=== PATIENT | male | born 1995 | race Caucasian/White ===

== ENCOUNTER 2018-09-27 22:09 | Emergency (ER) | payer OTHER ==
[2018-09-27 22:24] VITALS: TEMP 99.2; BMI 36.5
[2018-09-27] MEDS ORDERED: LIDOCAINE HCL 1% SDV SUBCUT STA (22:41)
--- NOTE | 2018-09-27 23:27 | ED.PDOC ---
General ED Provider: Dr. SHINE LING Chief Complaint: Laceration Stated Complaint: patient is a 23 year old male who sustained an accidental laceration on the right distal anterior thigh with a new knief. Had some bleeding but was controlled with pressure. Time Seen by Physician: 22:30 Mode of Arrival: Walk-In Information Source: Patient Exam Limitations: No limitations Primary Care Provider: RAI STAPLETON Nursing and Triage Documentation Reviewed and Agree: Yes Does patient meet sepsis criteria?: No System Inflammatory Response Syndrome: Not Applicable Sepsis Protocol: For patient's 13 years and over: Temp is 96.8 and below OR 101 and greater Pulse >90 BPM Resp >20/minute Acutely Altered Mental Status Are patient's symptoms suggestive of a new infection, such as: -Pneumonia -Skin, Soft Tissue -Endocarditis -UTI -Bone, Joint Infection -Implantable Device -Acute Abdominal Infection -Wound Infection -Meningitis -Blood Stream Catheter Infection -Unknown Review of Systems - Review Of Systems Constitutional: Reports: No symptoms Musculoskeletal: Reports: Muscle pain (right thigh area of laceration ) Skin: Reports: Other (Skin laceration right Thigh ) All Other Systems: Reviewed and Negative Past Medical History - Past Medical History Previously Healthy: Yes Endocrine: Reports: None Cardiovascular: Reports: None Respiratory: Reports: None Hematological: Reports: None Gastrointestinal: Reports: None Genitourinary: Reports: None Neuro/Psych: Reports: Bipolar Disorder, Schizophrenia, Other (ADHD, TOURETTES) Musculoskeletal: Reports: None Cancer: Reports: None Other Pertinent Past Medical History: Obesity - Surgical History General Surgical History: Reports: None - Family History Family History: Reports: None - Social History Smoking Status: Current some day smoker Hx Substance Use: No Alcohol Screening: Occasionally - Immunizations Tetanus Shot up to Date: (UNKNOWN) Physical Exam - Physical Exam Appearance: Obese Pain Distress: Moderate Neck: Supple Respiratory: Airway patent, Breath sounds clear, Breath sounds equal, Respirations nonlabored Cardiovascular: RRR, Pulses normal, No rub, No murmur Skin: Warm, Dry Neurological: Alert, Oriented Psychiatric: Anxious Procedures - Laceration/Wound Repair Right Anterior Thigh Wound Description: Linear Wound Length (cm): 6 Wound Width: 1.5 Wound Depth: 2 Wound Explored: Clean Wound Irrigated: No Wound Prep: Saline, Hibiclens Anesthesia: Lidocaine Wound Margins: Flaps aligned Wound Repaired With: Sutures Suture Size and Type: 3.0 Prolene Number of Sutures: 11 (simple interrupted. ) Layer Closure?: No Sterile Dressing Applied?: Yes Splint Applied?: No Sling Applied?: No Progress: Tolerated fairly due to phobia of wounds and blood Re-Evaluation - Re-Evaluation Time of Re-Evaluation: 23:32 Status: Improved Vital Signs Stable: Yes (161/106) Critical Care Note - Critical Care Note Total Time (mins): 0 Course - Course Orders, Labs, Meds: Orders Category Date Time Status Lidocaine HCl/Pf [Lidocaine HCl 1% Sdv] MEDS 09/27/18 22:41 Discontinued 10 ml SUBCUT ONCE STA Medications Discontinued Medications Generic Name Dose Route Start Last Admin Trade Name Freq PRN Reason Stop Dose Admin Lidocaine HCl 10 ml 09/27/18 22:41 09/27/18 23:06 Lidocaine Hcl 1% Sdv SUBCUT 09/27/18 22:42 5 ml ONCE STA Administration Vital Signs: Temp Pulse Resp BP Pulse Ox 09/27/18 23:32 106 H 20 161/87 H 96 09/27/18 22:09 99.2 F 108 H 24 154/98 H 97 Departure - Departure Time of Disposition: 23:29 Disposition: HOME SELF-CARE Discharge Problem: Laceration - injury, Elevated blood pressure reading Instructions: Laceration (ED), Hypertension (ED) Condition: Stable Pt referred to PMD for follow-up: Yes IPMP verified?: No Additional Instructions: have your sutures removed in 7-10 days Report any signs of infection. Follow up with your PMD about elevated blood pressure Allergies/Adverse Reactions: Allergies No Known Drug Allergies Adverse Reaction (Verified 09/27/18 22:25) Home Medications: Ambulatory Orders 1 [No Reported Medications] 09/27/18 Disposition Discussed With: Patient, Family
[2018-09-27 23:32] VITALS: BP 161/87
== END 2018-09-27 23:40 | disposition home or self-care (01) ==
LOC: ED 22:09
DX: S71.111A Laceration without foreign body, right thigh, initial encounter (principal); W26.0XXA Contact with knife, initial encounter; I10 Essential (primary) hypertension; F17.210 Nicotine dependence, cigarettes, uncomplicated
CPT/HCPCS: 99283

== ENCOUNTER 2018-12-15 10:10 | Outpatient (CLI) | END 2018-12-15 10:11 | disposition home or self-care (01) | LOC: LAB 10:10 | PROVIDERS: ATTEND Family Medicine | DX: E78.5 Hyperlipidemia, unspecified (principal); R73.9 Hyperglycemia, unspecified; E66.9 Obesity, unspecified | CPT/HCPCS: 36415; 80053; 80061; 80306; 81001; 84439; 84443 ==

== ENCOUNTER 2018-12-26 14:06 | Observation (INO) ==
[2018-12-26 14:12] VITALS: BMI 41.7
--- NOTE | 2018-12-26 14:57 | DI ---
EXAM: Two views of the chest. History: Cough. Comparison: Chest radiograph Findings: Heart size is within normal limits. No focal consolidation. No appreciable pleural fluid and no pneumothorax. No acute osseous abnormalities. Impression: No acute cardiopulmonary process.
--- NOTE | 2018-12-26 16:12 | ED.PDOC ---
General ED Provider: Dr. EMBER GUDINO Chief Complaint: Chest Pain Stated Complaint: flu like symptoms chest pain, cough Time Seen by Physician: 14:14 Mode of Arrival: Walk-In Information Source: Patient Exam Limitations: No limitations Primary Care Provider: RAI STAPLETON Nursing and Triage Documentation Reviewed and Agree: Yes Does patient meet sepsis criteria?: No If yes, has appropriate treatment been initiated?: No System Inflammatory Response Syndrome: Not Applicable Sepsis Protocol: For patient's 13 years and over: Temp is 96.8 and below OR 101 and greater Pulse >90 BPM Resp >20/minute Acutely Altered Mental Status Are patient's symptoms suggestive of a new infection, such as: -Pneumonia -Skin, Soft Tissue -Endocarditis -UTI -Bone, Joint Infection -Implantable Device -Acute Abdominal Infection -Wound Infection -Meningitis -Blood Stream Catheter Infection -Unknown Respiratory Complaint Exam - Respiratory Complaint/Exam Symptoms Are: Still present Timing: Intermittent Initial Severity: Mild Current Severity: Mild Location: Chest Character: Reports: Non-productive cough, Dry cough Aggravating: Reports: URI Alleviating: Reports: None Associated Signs and Symptoms: Reports: URI, Nasal congestion. Denies: Rapid breathing, Dyspnea, Fever, Chills, Chest pain, Pleuritic chest pain, Wheezing, Hemoptysis, Dizziness, Calf pain, Calf swelling, Edema, Hoarseness, Sinus discomfort, Vomiting, Sore throat, Weight loss, Decreased oral intake, Increased thirst, Increased appetite, Increased urination History of Healthcare-Acquired Pneumonia: No Related Surgical History: Reports: None Pulmonary Embolism Risk Factors: None Cardiac Risk Factors: Reports: None Pseudomonas Risk Factors: Reports: None Tuberculosis Risk Factors: Reports: None Status Asthmaticus Risk Factors: Reports: None Home Oxygen Use: No Recent Stress Test: No Recent Echo/LV Function: No Current Antibiotic Use: No Current Asthma Medication Use: No Respiratory Distress: None Inadequate Respiratory Effort: No Dysphagia Present: No Stridor Present: No JVD Present: No Accessory Muscle Use: No Retractions: Not Present Sinus Tenderness: None Grunting Respirations: No Kussmaul Respirations: No Differential Diagnoses: Pneumonia, Bronchitis Review of Systems - Review Of Systems Constitutional: Reports: No symptoms Eyes: Reports: No symptoms Ears, Nose, Mouth, Throat: Reports: No symptoms Respiratory: Reports: No symptoms Cardiac: Reports: Chest pain GI: Reports: No symptoms : Reports: No symptoms Musculoskeletal: Reports: No symptoms Skin: Reports: No symptoms Neurological: Reports: No symptoms Endocrine: Reports: No symptoms Hematologic/Lymphatic: Reports: No symptoms All Other Systems: Reviewed and Negative Past Medical History - Past Medical History Previously Healthy: Yes Endocrine: Reports: None Cardiovascular: Reports: None Respiratory: Reports: None Hematological: Reports: None Gastrointestinal: Reports: None Genitourinary: Reports: None Neuro/Psych: Reports: Bipolar Disorder, Schizophrenia, Other (ADHD, TOURETTES) Musculoskeletal: Reports: None Cancer: Reports: None Other Pertinent Past Medical History: Obesity - Surgical History General Surgical History: Reports: None - Family History Family History: Reports: None - Social History Smoking Status: Current some day smoker Hx Substance Use: Yes Alcohol Screening: Occasionally - Immunizations Tetanus Shot up to Date: Yes Physical Exam - Physical Exam Appearance: Well-appearing, No pain distress, Well-nourished Eyes: WILFREDO, EOMI, Conjunctiva clear ENT: Ears normal, Nose normal, Oropharynx normal Respiratory: Airway patent, Breath sounds clear, Breath sounds equal, Respirations nonlabored Cardiovascular: RRR, Pulses normal, No rub, No murmur GI/: Soft, Nontender, No masses, Bowel sounds normal, No Organomegaly Musculoskeletal: Normal strength, ROM intact, No edema, No calf tenderness Skin: Warm, Dry, Normal color Neurological: Sensation intact, Motor intact, Reflexes intact, Cranial nerves intact, Alert, Oriented Psychiatric: Affect appropriate, Mood appropriate 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 Rhythm: Sinus Ectopy: None - EKG Interpretation Rate: Normal Rhythm: Sinus Ectopy: None [place]: NL Physician Notification - Case Discussed Physician Notified: [email or web address] Time of Notification: 16:16 Admit To: Observation Critical Care Note - Critical Care Note Total Time (mins): 0 Course - Course Hematology/Chemistry: 12/26/18 14:28 12/26/18 14:28 Orders, Labs, Meds: Lab Review 12/26/18 12/26/18 12/26/18 14:28 14:28 14:35 WBC 10.55 H RBC 5.17 Hgb 15.6 Hct 46.7 MCV 90.3 MCH 30.2 MCHC 33.4 RDW Coeff of Polo 12.5 Plt Count 240 Immature Gran % (Auto) 0.3 Neut % (Auto) 57.6 Lymph % (Auto) 34.6 Hand % (Auto) 5.9 Eos % (Auto) 1.2 Baso % (Auto) 0.4 Immature Gran # (Auto) 0.0 Neut # (Auto) 6.1 Lymph # (Auto) 3.7 H Hand # (Auto) 0.6 Eos # (Auto) 0.1 Baso # (Auto) 0.0 Sodium 140.7 Potassium 4.38 Chloride 100.8 Carbon Dioxide 29.0 Anion Gap 15.28 BUN 13.0 Creatinine 0.88 Estimated GFR (MDRD) 109.00 BUN/Creatinine Ratio 14.77 Glucose 96.3 Calcium 9.69 Total Bilirubin 0.48 AST 38.4 ALT 58.2 H Alkaline Phosphatase 72.3 Total Creatine Kinase 65.9 Troponin I < 0.012 Total Protein 7.85 Albumin 4.71 Globulin 3.14 Albumin/Globulin Ratio 1.50 Urine Opiates Screen Negative Ur Oxycodone Screen Negative Urine Methadone Screen Negative Ur Propoxyphene Screen Negative Ur Barbiturates Screen Negative U Tricyclic Antidepress Negative Ur Phencyclidine Scrn Negative Ur Amphetamine Screen Negative U Methamphetamines Scrn Negative U Benzodiazepines Scrn Negative Urine Cocaine Screen Negative U Cannabinoids Screen Positive Influ A Molecular Assay Influ B Molecular Assay 12/26/18 14:35 WBC RBC Hgb Hct MCV MCH MCHC RDW Coeff of Polo Plt Count Immature Gran % (Auto) Neut % (Auto) Lymph % (Auto) Hand % (Auto) Eos % (Auto) Baso % (Auto) Immature Gran # (Auto) Neut # (Auto) Lymph # (Auto) Hand # (Auto) Eos # (Auto) Baso # (Auto) Sodium Potassium Chloride Carbon Dioxide Anion Gap BUN Creatinine Estimated GFR (MDRD) BUN/Creatinine Ratio Glucose Calcium Total Bilirubin AST ALT Alkaline Phosphatase Total Creatine Kinase Troponin I Total Protein Albumin Globulin Albumin/Globulin Ratio Urine Opiates Screen Ur Oxycodone Screen Urine Methadone Screen Ur Propoxyphene Screen Ur Barbiturates Screen U Tricyclic Antidepress Ur Phencyclidine Scrn Ur Amphetamine Screen U Methamphetamines Scrn U Benzodiazepines Scrn Urine Cocaine Screen U Cannabinoids Screen Influ A Molecular Assay Negative by naat Influ B Molecular Assay Negative by naat Orders Category Date Time Status EKG-(ED ONLY) Stat CARDIO 12/26/18 14:20 Completed CBC W/ AUTO DIFF Stat LAB 12/26/18 14:28 Completed COMPREHENSIVE METABOLIC PANEL Stat LAB 12/26/18 14:28 Completed CREATINE KINASE Stat LAB 12/26/18 14:28 Completed FLU A/B MOLECULAR Stat LAB 12/26/18 14:35 Completed MOLECULAR GROUP A STREP Stat LAB 12/26/18 16:03 Received TROPONIN I Stat LAB 12/26/18 14:28 Completed URINE DRUG SCREEN (RAPID FOR ED) [DRUG SCREEN, URINE, LAB 12/26/18 14:35 Completed RAPID] Stat CHEST, 2 VIEWS PA & LAT Stat RADS 12/26/18 14:19 Completed Vital Signs: Temp Pulse Resp BP Pulse Ox 12/26/18 14:08 98.1 F 110 H 20 180/100 H 98 Departure - Departure Time of Disposition: 16:13 Disposition: PLACED OBSERVATION Discharge Problem: Chest pain Condition: Good Pt referred to PMD for follow-up: Yes IPMP verified?: No Allergies/Adverse Reactions: Allergies No Known Drug Allergies Adverse Reaction (Verified 09/27/18 22:25) Home Medications: Ambulatory Orders 1 [No Reported Medications] 09/27/18
[2018-12-26] MEDS ORDERED: ASPIRIN CHEWABLE PO STA (16:18)
[2018-12-26] MEDS ORDERED: SODIUM CHLORIDE 1,000 ML IV SCH (16:30)
--- NOTE | 2018-12-26 16:42 | PCM ---
- Chief Complaint Chief Complaint: URI, Atypical chest pain. Marijuana use. - History of Present Illness History of Present Illness: 23 yo WM presnted to ER 14:[address] Vanegas. PCp Dr. Mitchell. The patient reported flu like symptoms and chest pain, worse with cough. Temp was afebrile, Pulse 110, RR 20, BP 180/100, pulse ox 98%. He did not meet SIRS criteria (WBC <12). Reported intermittent chest pain to ER provider, mild to moderate sx non productive cough, dry, URI symptoms, nasal congestion, cough. No rapid breathing no dypnea, no fever, no chills, no pleuritic chest pain, no wheezing, no hemoptysis, calf pain/swelling/edema, sore throat, weight loss, decreased oral intake, increased thirst, increased appetite. No other major issues, ddx in ER was pneumonia vs bronchitis. Based on heckerling rule to this point patient had a 4% OP and 11% ER risk of pneumonia assuming prevalence of 5 % outpatient and up to 15% ER pretest probabilty and CXR likely would be of benefit. ROS reported chest pain , reported no respiratory symptoms according to the ROS. History of bipolar, schizophrenia and tourettes. ER examination well-appearing, no distress, well-nourished, normal reported HEENT, normal respiratory. Normal CV, normal GI/. normal MSK/SKIN/Neuro/psych. EKG reported to me by Dr. Vanegas as NSR. monitoring and evaluation advisor normal. Labs in ER CBC showed WBC 10.55, Hgb 15.6, plt 240. CMP with sodium 140.7, K+ 4.38, Cl 100.8, BUN 13.cl 0.88 and glucose 96.3. CBC differential showed a mild elevation of lymphocytes consistent with viral process. CMP mild elevation of ALT at 58.2 and troponin <0.012. CK normal 65.9. UDS + for THC. Flu A/B negative. CXR was negative, reviewed this via PACS personally and no e/o pneumonia. Patient was seen in ER 2. Patient has prominent deep voice. He notes feelign like pressure along his manubrium. He feels intermittent beats/abnormal beats. He has history of HTN, takes medications for this regularly. The patient normally follows with Dr. Mitchell. The patient has no pain with swallowing. No sore throat. No rhinorrhea. He has mild cough. I asked him about his voice and he notes it is very deep. He has no globus sensation. He has mid sternal chest pain, this comes and goes. He noted pain with palpation of the chest along the sternum. He does not like the way he is feeling and came to ER. He missed his BP meds today and presented with marked elevation of 180/100. No WITT, no vision changes, no Nausea, no vomiting, no diarrhea, no abdominal, no acid reflux. Overall he feels okay other than chest pain. He has mild SOA with activity. He has no sick contacts. He smokes about 3 cig per day. He has 3 dogs outdoors. He currently lives with grandfather. He has no children. He is not working currently. 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 No exposures to chemicals. Last use marijuana today. He goes through 1-2 joints per day of THC. He does this infrequently. Again denied any reflux symptoms. No c/o swallowing problems, his voice is very deep and sounds hot potato. he hasn ever seen specialist regarding voice. - Review of Systems Constitutional: No: fever, chills, weakness, sweats, fatigue, loss of appetite, other Eyes: No: blurred vision, double-vision, discharge, itching, pain, redness, photophobia, other Ears: No: pain, bleeding, drainage, ringing, hearing loss, other Nose: No: bleeding, congestion, discharge, other Throat: No: pain, swelling, voice change (Chronic very deep voice is normal per his report, no issues, no changes. ), other Mouth: No: bleeding, pain, swelling, other Respiratory: cough, shortness of air. No: wheeze, hemoptysis, pain with breathing, other Cardiovascular: chest pain. No: left arm pain, diaphoresis, PND, orthopnea, edema, palpitations, syncope, other Gastrointestinal: No: abdominal pain, other, nausea, vomiting, diarrhea, melena , hematemesis, hematochezia, dysphagia, constipation Genitourinary: No: dysuria, hematuria, frequency, incontinence, flank pain, penile discharge, testicular pain, testicular swelling, other Neurological: No: headache, other, dizziness, seizure, numbness, weakness, speech difficulty, problems with walking, tremor, fainting Musculoskeletal: pain (right shoulder acute after sleeping on arm wrong 2 days ago, improving now. ). No: swelling in joints, other Skin: No: rash, pruritus, lacerations, wounds, bruising, other Immunology: No: hives, itching, frequent infections, difficulty healing, other Hematology: No: easy bruising, easy bleeding, swollen glands, other Endocrine: No: weight changes, cold intolerance, heat intolerance, excessive thirst, excessive hunger, polyuria, other Psychiatric: depression, anxiety. No: sleeplessness, hopelessness, suicidal, hallucinations, other Habits: tobacco use, substance use (1-2 joints per day), alcohol use (1/2 pint per day) - Past Medical History Past Medical History: Essential HTN. Schizophrenia dx as youth. Obesity BMI 41.7. - Past Surgical History Past Surgical History: NONE - Allergies Allergies/Adverse Reactions: Allergies Allergy/AdvReac Type Severity Reaction Status Date / Time No Known Drug Allergies AdvReac Verified 12/26/18 17:15 - Medications Medications: Medications Generic Name Dose Route Start Last Admin Trade Name Freq PRN Reason Stop Dose Admin Sodium Chloride 1,000 mls @ 75 mls/hr 12/26/18 16:30 Sodium Chloride IV .[id number] YAMILKA HTN medication gets this through MD 1. - Family History Past Family History: Mother: living no knwon medical problems per patient. Father: living no known medical problems per patient. brother: Healthy per patient. Sister: Healthy per patient. No children. He denies any known family history. - Social History Past Social History: +THC, +tobacco 3 cig/day, 1/2 pint of alochol per day. Lives with grandfather at present. 3 dogs outdoors. - Vital Signs Temperature: 98.1 F Pulse Rate: 110 Respiratory Rate: 20 Blood Pressure: 180/100 O2 Sat by Pulse Oximetry: 98 - Body Composition Height: 6 ft 3 in Weight: 334 lb Body Mass Index (BMI): 41.7 - Physical Examination HEENT: Constitutional: Appearance-No acute distress, Consistent with stated age. Orientation- Oriented x 3, alertGait-Normal pace, normal arm movement. Build and Nutrition-[Obese male] General- Patient is pleasant and cooperative with the interview and exam. [place] body weight 186.3 lb. Adjusted 245.4 lb. Integumentary: General-No rashes, ulcers or lesions. Palpation- Normal skin moisture/turgor. Skin is warm to touch, appropriate. Capillary refill is normal bilateral Upper and lower extremity. Head/Neck: Head- normocephalic and atraumatic. Neck- without visible/palpable lumps or pulsations. Palpation- No bony tenderness about head/neck along frontal, occipital, temporal, parietal, mastoid, jawline, zygoma, orbit or any other location. NO temporal artery tenderness. No TMJ tenderness. Neck Supple. Thyroid-No thyromegaly, no nodules Eye: Bilaterally PERRLA, EOMI. No discharge. Upper and lower eyelids are normal. Sclera/conjunctiva normal without discharge. Cornea is normal and clear. Lens is normal. Eyeball appears normal. No ciliary flushing, no conjunctival injection. ENMT: Pinna- normal without tenderness or erythema. External auditory canal Left- normal without erythema or discharge, no excessive cerumen. External auditory canal Right-normal without erythema or discharge, no excessive cerumen. TM left- [place]/pearly, normal light reflex and anatomy TM Right- [place]/ pearly, normal light reflex and anatomy Hearing Assessment-normal to conversational speech. Nose and sinus- No sinus tenderness along frontal/ maxillary region. External appearance normal and midline. Nares- bilateral quiet airflow, no discharge. Nasal mucosa- No bleeding noted and no ulcerations observed. [place], moist. Turbinates non boggy. Lips- normal color, moist without cracks/lesions Oral Cavity/Palate- hard/soft palate intact without lesions, oral mucosa pink and moist. Tongue normal midline. Oropharynx- no pharyngeal erythema, Uvula midline. No post nasal drip. No exudate. Salivary glands- Non tender to palpation Voice is deep and raspy and has a hot potato aspect to it. CHEST/LUNG: Inspection- symmetric chest wall no pectus deformity. Normal effort , no distress, no use of accessory muscles. Palpation- nontender sternum, ribline. No abnormal pulsations. Auscultation- Breath sounds normal throughout all lung sommers. Normal tracheal sounds, Normal bronchial sounds overlying sternum, Bronchovessicular sounds normal between scapulae posteriorly, Normal vessicular breath sounds heard throughout periphery. Lungs are clear today. Adventitious sounds- No wheezes, rales, rhonchi. CARDIOVASCULAR: Carotid artery- normal, no bruits or abnormal pulsations. Jugular vein- no pulsations. Palpation/Percussion- Normal PMI, no palpable thrill No reproducible chest wall pain. No tenderness manubrium, xyphoid. Auscultation- Regular rate and rhythm. No murmur noted in sitting, supine positions. Extremities- no digital clubbing, cyanosis, edema, increased warmth. ABDOMEN: Inspection- normal and no visible pulsations. Normal contour. Auscultation- Bowel sounds normal, no abdominal bruits. Palpation/Percussion- soft, non-tender, no rebound tenderness, no rigidity (guarding), no jar tenderness, no masses. Liver-no hepatomegaly, Spleen no splenomegaly, Hernias - none. Rectal not examined. Peripheral Vascular: Upper extremity Left- Normal temperature with pink nailbeds and no ulcerations. Upper extremity Right- Normal temperature with pink nailbeds and no ulcerations. Lower extremity- Normal temperature with pink nailbeds and no ulcerations. DP pulses 2+ bilaterally. Pedal hair intact. Normal capillary refill. Edema- No edema. Musculoskeletal: Generalized-No generalized swelling or edema of extremities, no digital clubbing or cyanosis, neurovascularly intact all four extremities. Upper extremity- Symmetrical posture. No visible deformity. Normal sensation along medial and lateral upper extremity proximally and distally. NO tenderness overlying shoulder, lateral/medial epicondyle. [employer] 5/5 and strength 5/5 bilateral UE. Elbow palpated, no tenderness overlying olecranon. Normal supination, pronation to active/passive ROM and to resisted rotation. Bicep insertion/tricep insertion appear normal without obvious pathology. Rotator cuff evaluated and intact. Normal wrist ROM bilaterally. Normal hand movement, intrinsic muscles of hands normal. No tenderness to palpation of hands/wrists/ elbows. Lower extremity- Hip: Not tender to palpation, no pain, no swelling, edema or erythema of surrounding tissue, normal strength and tone. Normal appearing hip ROM bilaterally without pain. Knee: Knee ROM normal. No tenderness overlying trochanters, no tenderness about patella, quad tendon, patellar tendon. No tenderness at tibial tuberosity. Ankle: normal ROM not tender to palpation along medial/lateral malleolus. Foot: Normal movement of toes, no tenderness bilateral feet/toes. Normal foot type. Wearing sandals. Spine/Ribs- No deformities, masses or tenderness, no known fractures, normal strength, Normal ROM. Normal stability No tenderness along C/T/L spine. Normal appearing ROM about spine. Neurological: General- Moves all 4 extremities symmetrically. Symmetrical face and body posture. Cranial nerves- individually evaluated II-XII and intact. PERRLA, Normal EOMI, visual/special senses appear intact, Face is symmetrical and normal sensation/movement, normal tongue, normal strength/posture of neck musculature. Reflexes- intact with DTR 2+ patellar, Achilles, bicep, brachial, tricep. Ankle clonus normal with 2 beats. Strength- 5/5 bilateral UE and LE. Soft touch- intact bilateral UE and LE. Temperature sensation- intact bilateral UE and LE. Neuropsych: Oriented- Person, place, time. (AAOx3), Mood/affect- normal and congruent. Able to articulate well. Speech-Normal speech, normal rate, normal tone, normal use of language, volume and coherence. Thought content- normal with ability to perform basic computations and apply abstract thought/reason. Associations- intact, no SI/HI, no hallucinations, delusions, obsessions. Judgment/insight- Appropriate. Memory-Recall intact, remote and recent memory intact. Knowledge- Age appropriate fund of knowledge, concentration and attention span normal. Lymphatic: Head/Neck- normal size and non tender to palpation. Axillary- normal size and non tender to palpation. Femoral and Inguinal- normal size and non tender to palpation. - Lab/Tests/Diagnostic Imaging Lab/Tests/Diagnostic Imaging: Laboratory Last Values WBC 10.55 K/ul (4.2-10.2) H 12/26/18 14:28 RBC 5.17 10^6/ul (4.70-6.10) 12/26/18 14:28 Hgb 15.6 g/dl (14.0-18.0) 12/26/18 14:28 Hct 46.7 % (42.0-52.0) 12/26/18 14:28 MCV 90.3 fl (80.0-94.0) 12/26/18 14:28 MCH 30.2 pg (27.0-31.0) 12/26/18 14:28 MCHC 33.4 (31.8-35.4) 12/26/18 14:28 RDW Coeff of [place] 12.5 % (11.6-14.8) 12/26/18 14: Plt Count 240 10^3/uL (140-440) 12/26/18 14: Immature Gran % (Auto) 0.3 % (0.0-5.0) 12/26/18 14: Neut % (Auto) 57.6 12/26/18 14:28 Lymph % (Auto) 34.6 (10.0-50.0) 12/26/18 14: [place] % (Auto) 5.9 (0-10) 12/26/18 14: Eos % (Auto) 1.2 % (0.0-7.0) 12/26/18 14: Baso % (Auto) 0.4 % (0.0-3.0) 12/26/18: Immature Gran # (Auto) 0.0 (0.0-1.0) 12/26/18 14: Neut # (Auto) 6.1 K/ul (2.0-6.9) 12/26/18 14: Lymph # (Auto) 3.7 K/uL (0.60-3.4) H 12/26/18 14:28 [place] # (Auto) 0.6 K/uL (0.4-2.0) 12/26/18 14: Eos # (Auto) 0.1 K/ul (0.0-0.7) 12/26/18 14: Baso # (Auto) 0.0 K/uL (0-0.2) 12/26/18 14: Sodium 140.7 mmol/L (134.5-145) 12/26/18 14: Potassium 4.38 mmol/L (3.5-5.1) 12/26/18 14: Chloride 100.8 mmol/L (98-107) 12/26/18 14: Carbon Dioxide 29.0 mmol/L (22-30.0) 12/26/18 14: Anion Gap 15.12/26/18 14: BUN 13.0 mg/dL (9-20) 12/26/18 14: Creatinine 0.88 mg/dL (0.60-1.10) 12/26/18 14: Estimated GFR (MDRD) 109.00 mL/min 12/26/18 14:28 BUN/Creatinine Ratio 14.77 12/26/18 14:28 Glucose 96.3 mg/dL (74-106) 12/26/18 14:28 Calcium 9.69 mg/dL (8.4-10.2) 12/26/18 14:28 Total Bilirubin 0.48 mg/dL (0.2-1.3) 12/26/18 14:28 AST 38.4 U/L (17-59) 12/26/18 14:28 ALT 58.2 U/L (0-50) H 12/26/18 14:28 Alkaline Phosphatase 72.3 U/L (38-126) 12/26/18 14:28 Total Creatine Kinase 65.9 U/L (55-170) 12/26/18 14:28 Troponin I < 0.012 ng/ml (0.0000-0.120) 12/26/18 14:28 Total Protein 7.85 g/dL (6.3-8.2) 12/26/18 14:28 Albumin 4.71 g/dL (3.5-5.0) 12/26/18 14:28 Globulin 3.14 12/26/18 14:28 Albumin/Globulin Ratio 1.50 12/26/18 14:28 Urine Opiates Screen Negative (NEGATIVE) 12/26/18 14:35 Ur Oxycodone Screen Negative (NEGATIVE) 12/26/18 14:35 Urine Methadone Screen Negative (NEGATIVE) 12/26/18 14:35 Ur Propoxyphene Screen Negative (NEGATIVE) 12/26/18 14:35 Ur Barbiturates Screen Negative (NEGATIVE) 12/26/18 14:35 U Tricyclic Antidepress Negative (NEGATIVE) 12/26/18 14:35 Ur Phencyclidine Scrn Negative (NEGATIVE) 12/26/18 14:35 Ur Amphetamine Screen Negative (NEGATIVE) 12/26/18 14:35 U Methamphetamines Scrn Negative (NEGATIVE) 12/26/18 14:35 U Benzodiazepines Scrn Negative (NEGATIVE) 12/26/18 14:35 Urine Cocaine Screen Negative (NEGATIVE) 12/26/18 14:35 U Cannabinoids Screen Positive (NEGATIVE) 12/26/18 14:35 Influ A Molecular Assay Negative by naat (NEGATIVE) 12/26/18 14:35 Influ B Molecular Assay Negative by naat (NEGATIVE) 12/26/18 14:35 CXR No acute process. - Assessment (1) Essential (primary) hypertension Status: Acute Code(s): I10 - ESSENTIAL (PRIMARY) HYPERTENSION SNOMED Code(s) : 23714533 (2) Chest pain, atypical Status: Acute Code(s): R07.89 - OTHER CHEST PAIN SNOMED Code(s): 607855309 (3) Body mass index (BMI) of 40.1 to 44.9 in adult Status: Acute Code(s): Z68.41 - BODY MASS INDEX (BMI) 40.0-44.9, ADULT SNOMED Code(s): 536527019 (4) Voice disorder Status: Acute Code(s): R49.9 - UNSPECIFIED VOICE AND RESONANCE DISORDER SNOMED Code(s): 46701615 (5) Throat clearing Status: Acute Code(s): R19.8 - OTH SYMPTOMS AND SIGNS INVOLVING THE DGSTV SYS AND ABDOMEN SNOMED Code(s): 831470267 (6) Hyperlipidemia Status: Acute Code(s): E78.5 - HYPERLIPIDEMIA, UNSPECIFIED SNOMED Code(s): 95718745 (7) Elevated ALT measurement Status: Acute Code(s): R74.0 - NONSPEC ELEV OF LEVELS OF TRANSAMNS & LACTIC ACID DEHYDRGNSE SNOMED Code(s): 979172994 (8) Leukocytosis Status: Acute Code(s): D72.829 - ELEVATED WHITE BLOOD CELL COUNT, UNSPECIFIED SNOMED Code(s): 135217422, 394119164 - Plan Plan: Atypical Chest Pain: New problem, additional w/u planned. Low risk of pneumonia, did not meet SIRS criteria. He cleared throat multiple times during interview and voice deep sounds like he has a foreign body. He notes it is chronic. He has been on lisinopril, I will stop this and change to losartan. Poorly characterized pain, no PND, no orthopnea, mild SOA and not reproducible chest pain. DDX for chest pain is vast. We discussed typical examination in history findings for chest pain and heart attack today. We discussed that multiple organ systems can be the cause for this complaint. We reviewed possible causes to include cardiac etiologies: ACS, pericarditis, pericardial effusion, respiratory issues to include bronchitis/asthma/COPD/bronchospasm, PE (No SOA, no BARCENAS, LOW LIKELIHOOD OF PE/DVT based on Wells score 0 (1.3%)), GI problems to include esophageal spasm/achalasia, Hiatal hernia, GERD, PUD, Liver disease/pancreatic disease, renal disease. Will check labs as listed. We discussed risks and benefits to getting EKG today, we reviewed aspirin and nitroglycerin. EKG is fine. Cardiac monitoring was fine. With throat clearing and deep voice, I will consider stopping lisinopril, changing to 50mg losartan. I would like for him consider f/u with ENT as outpatient for evaluation of larynx. He noted understanding. - Admit Obs - Echo in am - Stress echo in am - Telemetry - CBC/CMP in am - TI and CKMB q 8 x 3 total - Stop lisinopril 10mg and change to losartan 50mg - ENT as outpatient for evaluation of larynx. - NS 125ml/hour based on ideal body weight. Essential HTN: Chronic problem for this patient, worsening. Suspect essential HTN. Good BP control is encouraged with Goal BP based on JNC 8 guidelines: For the general population <60 yr old goal BP <140/90. Reviewed medications and discussed the typical first line agents to include thiazide diuretic or frederick-I or ARB or CCB alone or in combo. He was on lisinopril 10mg, I will change this to losartan 50mg. I recommended to the patient to obtain electronic home BP machine with upper arm blood pressure cuff and to check regularly. I will see if the change in BP medication make a difference for him. - Stop Lisinopril 10mg - Change to Losartan 50mg - Telemetry - Overnight Vitals - I+O q 8 hours. Hyperlipidemia: On lipitor. Status unknown. F/U with this as outpatient. Continue statin - Continue statin while in hospital. - Lipid panel. Voice derangement; Chronic problem for patient, Prominent deep voice. Will stop lisinopril. WIth voice clearing and vocal changes, this may be drug related or may have atypia/polyp on the larynx. We will have him f/u with ENT as outpatient. No advanced imaging now as this is not acute, no threat to airway , no swelling of lips/face/tongue. - Stop Frederick-I - Change to ARB to see if it makes any difference - Monitor BP - MOnitor changes in voice. Elevated ALT: Non specific problem. I will monitor this. Repeat CMP in am. - CMP in am. Light Smoker: Tobacco Cessation discussed today for 2 minutes. We reviewed lifestyle choices and discussed quitting. Ready to quit status discussed. The risks and hazards of continued tobacco abuse were discussed with the patient today and total tobacco cessation as recommended. It was clearly and unambiguously explained that continued tobacco usage will adversely affect overall morbidity and mortality of the patient. Patient was informed that tobacco use can lead to numerous cancers, worsening of cardiovascular and pulmonary systems and that lung damage is often permanent and irreversible. I advised the patient to inform me if any further assistance is requested, as we can offer counseling services, nicotine replacement inhaled, patch, lozenge, gum , or prescription medications to include Chantix or Wellbutrin for assistance. I will reassess the interest in tobacco cessation at the next and all subsequent visits. Leukocytosis: Patient has mildly elevated WBC. Fluid hydration and monitor. - CBC in am. BMI 41.7: Discussed the federal guidelines suggest a healthy goal BMI of 18.5- 24.9 for people 18-65 and 23-30 for people age 65 and older. Overweight is considered BMI 25-30, Obesity 30-40 and Morbid obesity is defined as >100 lb overweight or BMI >40. With a BMI above goal, it is recommended to utilize a diet/exercise program to get back into the appropriate range. Consider referral to candle pourer. For BMI >40 consider referral to bariatrics. If not already monitoring intake. I would recommend at least to keep a food diary. Document everything that is consumed into a food diary. Studies have shown that patients can lose up to 2x the weight by keeping track of foods. Offered handout on weight loss techniques. Apps that may be of benefit include [employer], Lose it. Regular exercise encouraged. Start with walking 5-10 minutes at a pace that is difficult to carry a conversation. If chest pain/SOA stop and f/u in office. - Would recommend f/u with PCP as outpatient. - Recommend 150minutes per week of exercise. Marijuana Abuse: Recommended cessation today. Spent 2 minutes with him discussing options. Diet: Regular DVT Prophy: Will use lovenox prophy dose for now. Modified well suggests low risks for DVT/PE based on history/exam. - 40mg subcut lovenox daily. Activity: Ad carin Disposition: Monitor overnight. Echo and stress echo in the am per discussion with cardiology. We will likely d/c after these are completed and negative. Personally reviewed EKG and CXR. Discussed case with DR. Vanegas. Talked with patient in ER Room 2. Obtained medications from pharmacy, reviewed and obtained Past medical, surgical, social and family histories. Total time today spent >70 minutes, not to include documentation.
[2018-12-26] MEDS ORDERED: ATORVASTATIN CALCIUM 10 MG PO SCH (18:01)
[2018-12-26] MEDS ORDERED: COZAAR PO SCH (18:01)
[2018-12-26] MEDS ORDERED: PAROXETINE HCL 20 MG PO SCH (18:02)
[2018-12-26] MEDS ORDERED: LOVENOX SUBCUT SCH (18:30)
[2018-12-26] MEDS: COZAAR PO SCH (18:33)
[2018-12-26] MEDS: PAXIL PO SCH (18:33)
[2018-12-26] MEDS ORDERED: DESYREL PO STA (20:45)
[2018-12-26] MEDS ORDERED: LIPITOR PO SCH (21:00)
[2018-12-27] MEDS: SODIUM CHLORIDE 1,000 ML IV SCH ×2 (01:16→08:34)
[2018-12-27 05:41] VITALS: BP 148/88; TEMP 97.8
--- NOTE | 2018-12-27 08:23 | PCM.PROG ---
Subjective: 23 yo hospital day 2. Patient seen in room 119. Rounding this am 12/27/18 8: 00-8:32. He did not sleep well through night, I was called around 9:30 asking about meds for sleep. I offered trazodone 50mg and to call if this did not work. The patient noted this am it did not help at all. He feels fine this am , no chest pain, no N/V/D, no URI, he actually feels the throat clearing is better and wants stress test so that he can go home. Labs this am were stable/ essentially unchanged. Lipid panel showed minimal hypertriglyceridemia 167.7, low HDL 31.7 and LDL of 104. WBC 10.25, hgb stable 14.1, plt stable 214. CMP unremarkable except minimal elevation of ALT 51.3 improved from 58.2 yesterday. He did receive 1 dose of lovenox. We have changed his home lisinopril to losartan and we will have him f/u with PCP about this change to see if it helps with throat clearing. He has voided x 2, ate 100% of dinner. Now NPO for echo/ stress test today as per Dr. Xie. BP through night has been reasonable and no additional needed interventions. He had sinus arrhythmia on tele with some sinus tachycardia. HR 83-110 through night but in high 60's now. I evaluated patient this am and he was sitting on bedside looking at his J-loop. He was preoccupied with this small bubble around the leur lock and nursing was contacted by me to evaluate this further. TSH was normal at 2.64, free T4 was normal at 1.24. No other imaging was completed. NO BM in hospital. He has no c/o now as per negative ROS listed below. Troponin and CKMB negative x 3. No chest pain, asymptomatic now, rule out ACS likely based on negative trop x 3. ALready eligio for stress this am, will complete and d/c when completed and likely negative. REVIEW OF SYMPTOMS: (Positives bolded) HE FEELS GREAT, NO CONCERNS at this time. General: weight loss, fever, chills, night sweats, fatigue, appetite loss HEENT: blurry vision, eye pain, eye discharge, dry eyes, decreased vision, sore throat tinnitus, bloody nose, hearin gloss, sinus pain/pressure, ear pain/ pressure. Respiratory: shortness of breath, cough, hemoptysis, wheezing, pleurisy, Cardiovascular: chest pain, PND, palpitation, edema, orthopnea, syncope, swelling of extremities Gastro: Nausea, vomiting, diarrhea, hematemesis, abdominal pain, constipation Genito: hematuria, dysuria, glycosuria, hesitancy, frequency, incontinence [place]: Arthralgia, myalgia, muscle weakness, joint swelling, NSAID use Skin: rash, pruritis, sores, nail changes, skin thickening, change in wart/mole , itching, rash, new lesions, pruritus, nail changes Neuro: Migraine, numbness, ataxia, tremor, vertigo, weakness, memory loss, Irritability, dizziness Endocrine: excessive thirst, polyuria, cold intolerance, heat intolerance, goiter Psychiatric: depression, anxiety, anti-depressants, alcohol abuse, drug abuse, insomnia, change in sleep pattern and mood changes Heme/lymph: easy bruising, bleeding gums, blood clots, swollen glands, lymphedema, Allergic/immune: allergic rhinitis, hay fever, asthma, hives Objective: Vital Signs - 24 hr 12/26/18 12/26/18 12/26/18 14:08 16:49 17:40 Temperature 98.1 F 98.6 F Pulse Rate 110 H 83 94 H Respiratory 20 20 16 Rate Blood Pressure 180/100 H 149/96 H O2 Sat by Pulse 98 99 98 Oximetry 12/26/18 12/26/18 12/27/18 18:37 22:00 05:40 Temperature 98.1 F 98 F 97.8 F Pulse Rate 110 H 79 81 Respiratory 20 14 20 Rate Blood Pressure 180/100 H 155/79 H 148/88 H O2 Sat by Pulse 98 98 99 Oximetry Constitutional: Appearance-No acute distress, Consistent with stated age. Sitting at bedside. Grandfather walked in at end of conversation. History discussed a second time. Orientation- Oriented x 3, alertGait-Normal pace, normal arm movement. Build and Nutrition-[obese male BMI 41.7. ] General- Patient is pleasant and cooperative with the interview and exam. Integumentary: General-No rashes, ulcers or lesions. Palpation- Normal skin moisture/turgor. Skin is warm to touch, appropriate. Capillary refill is normal bilateral Upper and lower extremity. Head/Neck: Head- normocephalic and atraumatic. Neck- without visible/palpable lumps or pulsations. Palpation- No bony tenderness about head/neck along frontal, occipital, temporal, parietal, mastoid, jawline, zygoma, orbit or any other location. NO temporal artery tenderness. No TMJ tenderness. Neck Supple. Thyroid-No thyromegaly, no nodules ENMT: Nose and sinus- No sinus tenderness along frontal/maxillary region. External appearance normal and midline. Nares- bilateral quiet airflow, no discharge. Nasal mucosa- No bleeding noted and no ulcerations observed. Bow, moist. Turbinates non boggy. Lips- normal color, moist without cracks/lesions Oral Cavity/Palate- hard/soft palate intact without lesions, oral mucosa pink and moist. Oropharynx- no pharyngeal erythema, Uvula midline. No post nasal drip. No exudate. Salivary glands- Non tender to palpation No pharynx abnormality. He has no tonsillar abnormality. Clearing throat is better on exam. He still has notable deep voice that sounds full. CHEST/LUNG: Auscultation- Breath sounds normal throughout all lung sommers. Normal tracheal sounds, Normal bronchial sounds overlying sternum, Bronchovessicular sounds normal between scapulae posteriorly, Normal vessicular breath sounds heard throughout periphery. Lungs are clear today. Adventitious sounds- No wheezes, rales, rhonchi. CARDIOVASCULAR: Auscultation- Regular rate and rhythm with some sinus arrhythmia not today. No murmur noted in sitting, supine positions. Extremities - no digital clubbing, cyanosis, edema, increased warmth. ABDOMEN: Inspection- normal and no visible pulsations. Normal contour. Auscultation- Bowel sounds normal, no abdominal bruits. Palpation/Percussion- soft, non-tender, no rebound tenderness, no rigidity (guarding), no jar tenderness, no masses. Peripheral Vascular: Normal temperature with pink nailbeds and no ulcerations. pulses 2+ bilaterally radial and DP. Normal capillary refill. Edema- No edema. Musculoskeletal: Generalized-No generalized swelling or edema of extremities, no digital clubbing or cyanosis, neurovascularly intact all four extremities. Neurological: General- Moves all 4 extremities symmetrically. Symmetrical face and body posture. Cranial nerves- individually evaluated II-XII and intact. PERRLA, Normal EOMI, visual/special senses appear intact, Face is symmetrical and normal sensation/movement, normal tongue, normal strength/posture of neck musculature. Neuropsych: Oriented- Person, place, time. (AAOx3), Mood/affect- Flat. Able to articulate Speech-Normal speech, but very deep sounding voice. Chronic per patient. normal rate, normal tone, normal use of language, volume and coherence. Thought content- normal with ability to perform basic computations and apply abstract thought/reason. Associations- intact, no SI/HI, no hallucinations, delusions, obsessions. Judgment/insight- Appropriate. Memory- Recall intact, remote and recent memory intact. Knowledge- Age appropriate fund of knowledge, concentration and attention span normal. Lymphatic: Head/Neck- normal size and non tender to palpation. Laboratory Last Values WBC 10.25 K/ul (4.2-10.2) H 12/27/18 06:21 RBC 4.76 10^6/ul (4.70-6.10) 12/27/18 06:21 Hgb 14.1 g/dl (14.0-18.0) 12/27/18 06:21 Hct 43.2 % (42.0-52.0) 12/27/18 06:21 MCV 90.8 fl (80.0-94.0) 12/27/18 06:21 MCH 29.6 pg (27.0-31.0) 12/27/18 06:21 MCHC 32.6 (31.8-35.4) 12/27/18 06:21 RDW Coeff of [place] 12.6 % (11.6-14.8) 12/27/18 06:21 Plt Count 214 10^3/uL (140-440) 12/27/18 06:21 Immature Gran % (Auto) 0.1 % (0.0-5.0) 12/27/18 06:21 Neut % (Auto) 45.5 12/27/18 06:21 Lymph % (Auto) 46.1 (10.0-50.0) 12/27/18 06:21 [place] % (Auto) 6.1 (0-10) 12/27/18 06:21 Eos % (Auto) 1.9 % (0.0-7.0) 12/27/18 06:21 Baso % (Auto) 0.3 % (0.0-3.0) 12/27/18 06:21 Immature Gran # (Auto) 0.0 (0.0-1.0) 12/27/18 06:21 Neut # (Auto) 4.7 K/ul (2.0-6.9) 12/27/18 06:21 Lymph # (Auto) 4.7 K/uL (0.60-3.4) H 12/27/18 06:21 [place] # (Auto) 0.6 K/uL (0.4-2.0) 12/27/18 06:21 Eos # (Auto) 0.2 K/ul (0.0-0.7) 12/27/18 06:21 Baso # (Auto) 0.0 K/uL (0-0.2) 12/27/18 06:21 Sodium 140.5 mmol/L (134.5-145) 12/27/18 06:21 Potassium 4.18 mmol/L (3.5-5.1) 12/27/18 06:21 Chloride 103.9 mmol/L (98-107) 12/27/18 06:21 Carbon Dioxide 27.4 mmol/L (22-30.0) 12/27/18 06:21 Anion Gap 13.38 12/27/18 06:21 BUN 14.9 mg/dL (9-20) 12/27/18 06:21 Creatinine 0.79 mg/dL (0.60-1.10) 12/27/18 06:21 Estimated GFR (MDRD) 124.00 mL/min 12/27/18 06:21 BUN/Creatinine Ratio 18.86 12/27/18 06:21 Glucose 92.3 mg/dL (74-106) 12/27/18 06:21 Calcium 9.01 mg/dL (8.4-10.2) 12/27/18 06:21 Total Bilirubin 0.45 mg/dL (0.2-1.3) 12/27/18 06:21 AST 42.9 U/L (17-59) 12/27/18 06:21 ALT 51.3 U/L (0-50) H 12/27/18 06:21 Alkaline Phosphatase 64.7 U/L (38-126) 12/27/18 06:21 Total Creatine Kinase 56.6 U/L (55-170) 12/27/18 06:21 Troponin I < 0.012 ng/ml (0.0000-0.120) 12/27/18 06:21 Total Protein 6.82 g/dL (6.3-8.2) 12/27/18 06:21 Albumin 4.14 g/dL (3.5-5.0) 12/27/18 06:21 Globulin 2.68 12/27/18 06:21 Albumin/Globulin Ratio 1.54 12/27/18 06:21 Triglycerides 167.7 mg/dL (0-150) H 12/27/18 06:21 Cholesterol 168.8 mg/dL (0-200) 12/27/18 06:21 LDL Cholesterol, Calc 104 mmol/L 12/27/18 06:21 VLDL Cholesterol 34 mg/dL (2-30) H 12/27/18 06:21 HDL Cholesterol 31.7 mg/dL (35-60) L 12/27/18 06:21 Cholesterol/HDL Ratio 5.3 (4.5-6.4) 12/27/18 06:21 TSH 2.640 uIU/L (0.465-4.68) 12/27/18 06:21 Free T4 1.24 ng/dL (0.78-2.19) 12/27/18 06:21 Urine Opiates Screen Negative (NEGATIVE) 12/26/18 14:35 Ur Oxycodone Screen Negative (NEGATIVE) 12/26/18 14:35 Urine Methadone Screen Negative (NEGATIVE) 12/26/18 14:35 Ur Propoxyphene Screen Negative (NEGATIVE) 12/26/18 14:35 Ur Barbiturates Screen Negative (NEGATIVE) 12/26/18 14:35 U Tricyclic Antidepress Negative (NEGATIVE) 12/26/18 14:35 Ur Phencyclidine Scrn Negative (NEGATIVE) 12/26/18 14:35 Ur Amphetamine Screen Negative (NEGATIVE) 12/26/18 14:35 U Methamphetamines Scrn Negative (NEGATIVE) 12/26/18 14:35 U Benzodiazepines Scrn Negative (NEGATIVE) 12/26/18 14:35 Urine Cocaine Screen Negative (NEGATIVE) 12/26/18 14:35 U Cannabinoids Screen Positive (NEGATIVE) 12/26/18 14:35 Influ A Molecular Assay Negative by naat (NEGATIVE) 12/26/18 14:35 Influ B Molecular Assay Negative by naat (NEGATIVE) 12/26/18 14:35 (1) Essential (primary) hypertension Status: Acute Code(s): I10 - ESSENTIAL (PRIMARY) HYPERTENSION SNOMED Code(s) : 69064843 (2) Chest pain, atypical Status: Acute Code(s): R07.89 - OTHER CHEST PAIN SNOMED Code(s): 706565207 (3) Body mass index (BMI) of 40.1 to 44.9 in adult Status: Acute Code(s): Z68.41 - BODY MASS INDEX (BMI) 40.0-44.9, ADULT SNOMED Code(s): 760790894 (4) Voice disorder Status: Acute Code(s): R49.9 - UNSPECIFIED VOICE AND RESONANCE DISORDER SNOMED Code(s): 61056475 (5) Throat clearing Status: Acute Code(s): R19.8 - OTH SYMPTOMS AND SIGNS INVOLVING THE DGSTV SYS AND ABDOMEN SNOMED Code(s): 942747328 (6) Hyperlipidemia Status: Acute Code(s): E78.5 - HYPERLIPIDEMIA, UNSPECIFIED SNOMED Code(s): 38997807 (7) Elevated ALT measurement Status: Acute Code(s): R74.0 - NONSPEC ELEV OF LEVELS OF TRANSAMNS & LACTIC ACID DEHYDRGNSE SNOMED Code(s): 962311158 (8) Leukocytosis Status: Acute Code(s): D72.829 - ELEVATED WHITE BLOOD CELL COUNT, UNSPECIFIED SNOMED Code(s): 225500025 Plan: Atypical Chest Pain: Now resolved. Troponin negative, telemetry negative, he has no s/sx of chest pain now. I did change his lisinopril to losartan as he has been clearing throat a lot lately (noted in ER) and he feels that this has actually improved overnight. Discussed post nasal drainage, GERD, he denies these. No URI s/sx now, no cough reported now, he feel much better. I would like to get Stress per cardiology and we will plan to d/c home with f/u with Dr. Mitchell this week when negative. Mild/minimal leukocytosis. Mild elevated ALT, non specific. Thyroid studies normal, lipid panel suggests russian diet and need for active weight loss/regular exercise. BP is not yet at goal but I would like to see how the losartan 50mg affects him after a few days before adding anything else. I would like for him consider f/u with ENT as outpatient for evaluation of larynx. He noted understanding. - Obs day 2, suspect d/c this am. - Echo this am - Stress echo this am - Telemetry while in hosp - Continue to hold lisinopril 10mg and to use losartan 50mg - Continue lipitor. - ENT as outpatient for evaluation of larynx. - NS 125ml/hour based on ideal body weight while in hospital. - Talk with PCP about sleep study to eval for JH. Also f/u with ENT about larynx. Essential HTN: Chronic problem for this patient, stable. Still mildly above goal of <140/90. WE just changed this and I would not add anything else for now. Discussed this with patient/Isidro his grandfather today. Weight loss may allow him to get off BP meds. Goal BP based on JNC 8 guidelines: For the general population <60 yr old goal BP <140/90. Reviewed medications and discussed the typical first line agents to include thiazide diuretic or dominguez-I or ARB or CCB alone or in combo. He was on lisinopril 10mg, I have changed this due to throat clearing and pressure like sensation (Globus) in throat. I have changed this to losartan 50mg. - Continue Losartan 50mg will d/c home on that - Telemetry while in hospital. Hyperlipidemia: On lipitor. Low HDL, LDL just above 100. Weight loss is most important aspect to focus on. Ideally 150min/week of regular exercise. - Continue statin Voice derangement; Chronic problem for patient, Prominent deep voice. NO immediate change after stopping lisinopril. Again no swelling of lips/tongue/ face, no SOA, no PND, no orthopnea. ENT as outpt would be reasonable. - F/U with PCP and refer ENT as Outpatient. Elevated ALT: Non specific problem. Stable, continue to monitor. Light Smoker: Again reviewed Tobacco Cessation today for 2 minutes. We reviewed lifestyle choices and discussed quitting. Ready to quit status discussed. The risks and hazards of continued tobacco abuse were discussed with the patient today and total tobacco cessation as recommended. It was clearly and unambiguously explained that continued tobacco usage will adversely affect overall morbidity and mortality of the patient. Patient was informed that tobacco use can lead to numerous cancers, worsening of cardiovascular and pulmonary systems and that lung damage is often permanent and irreversible. I advised the patient to inform me if any further assistance is requested, as we can offer counseling services, nicotine replacement inhaled, patch, lozenge, gum , or prescription medications to include Chantix or Wellbutrin for assistance. I will reassess the interest in tobacco cessation at the next and all subsequent visits. Leukocytosis: Patient has mildly elevated WBC. Fluid hydration and monitor. Stable. Non specific, suspect viral process with differential. BMI 41.7: Again focus for hsi overall health is weight loss. Consider bariatric f/u as outpatient. Talk with PCP. Reviewed the federal guidelines suggest a healthy goal BMI of 18.5-24.9 for people 18-65. Overweight is considered BMI 25 -30, Obesity 30-40 and Morbid obesity is defined as >100 lb overweight or BMI > 40. With a BMI above goal, it is recommended to utilize a diet/exercise program to get back into the appropriate range. Consider referral to aircraft launch and recovery technician. For BMI >40 I would highly recommend referral to bariatrics. If not already monitoring intake. I would recommend at least to keep a food diary. Document everything that is consumed into a food diary. Studies have shown that patients can lose up to 2x the weight by keeping track of foods. Offered handout on weight loss techniques. Apps that may be of benefit include [employer], Lose it. Regular exercise encouraged. Start with walking 5-10 minutes at a pace that is difficult to carry a conversation. If chest pain/SOA stop and f/u in office. - Would recommend f/u with PCP as outpatient. - Recommend 150minutes per week of exercise. Marijuana Abuse: Recommended cessation again today. Spent 2 minutes with him discussing options. Diet: NPO after midnight for procedures. DVT Prophy: Modified well suggests low risks for DVT/PE based on history/exam. No peripheral edema - 40mg subcut lovenox daily. Activity: Ad carin Disposition: At this point we are awaiting Echo and stress echo this am. We will likely d/c after these are completed and when negative. Reviewed am labs, overnight tele, talked with nursing, talked with patient and talked with his grandfather. Patient slept poorly, eval outpatient for JH may be reasonable option as well. Total time today spent 32 minutes, talking with patient and then again with his grandfather. This time did not include documentation.
[2018-12-27] MEDS: PAXIL PO SCH (08:30)
[2018-12-27] MEDS: COZAAR PO SCH (08:30)
[2018-12-27] MEDS ORDERED: COZAAR PO SCH (09:00)
[2018-12-27] MEDS ORDERED: ATORVASTATIN CALCIUM 10 MG PO SCH (09:00)
[2018-12-27] MEDS ORDERED: PAROXETINE HCL 20 MG PO SCH (09:00)
[2018-12-27] MEDS ORDERED: PNEUMOVAX 23 IM ONE (12:11)
[2018-12-27] MEDS ORDERED: FLUZONE QUAD 2018-2019 SYRINGE IM ONE ×2 (12:11→12:50)
--- NOTE | 2018-12-27 12:21 | PCM.DC ---
Final Diagnosis: All Active Problems Chest pain, atypical (Acute): Resolved, stress test negative. Body mass index (BMI) of 40.1 to 44.9 in adult (Acute) Elevated ALT measurement (Acute): Mild, monitor Essential (primary) hypertension (Acute on chronic): Medication change Hyperlipidemia (Chronic): ON lipitor, continue Leukocytosis (Acute): Consider repeat CBC in 1 week Throat clearing (Acute): Change of medication from lisinopril to losartan Voice disorder (Chronic): Would recommend outpatient evaluation by ENT. (1) Essential (primary) hypertension Status: Chronic Code(s): I10 - ESSENTIAL (PRIMARY) HYPERTENSION SNOMED Code( s): 15803628 (2) Chest pain, atypical Status: Resolved Code(s): R07.89 - OTHER CHEST PAIN SNOMED Code(s): 785659292 (3) Body mass index (BMI) of 40.1 to 44.9 in adult Status: Chronic Code(s): Z68.41 - BODY MASS INDEX (BMI) 40.0-44.9, ADULT SNOMED Code(s): 571629515 (4) Voice disorder Status: Chronic Code(s): R49.9 - UNSPECIFIED VOICE AND RESONANCE DISORDER SNOMED Code(s): 80593635 (5) Throat clearing Status: Chronic Code(s): R19.8 - OTH SYMPTOMS AND SIGNS INVOLVING THE DGSTV SYS AND ABDOMEN SNOMED Code(s): 693035678 (6) Hyperlipidemia Status: Chronic Code(s): E78.5 - HYPERLIPIDEMIA, UNSPECIFIED SNOMED Code(s) : 76496179 (7) Elevated ALT measurement Status: Acute Code(s): R74.0 - NONSPEC ELEV OF LEVELS OF TRANSAMNS & LACTIC ACID DEHYDRGNSE SNOMED Code(s): 849003774 (8) Leukocytosis Status: Acute Code(s): D72.829 - ELEVATED WHITE BLOOD CELL COUNT, UNSPECIFIED SNOMED Code(s): 580012692, 606651530 Reason for Hospitalization: Atypical Chest pain, Elevated Blood pressure in patient with HTN, Marijuana Use , Tobacco, Morbid obesity Prognosis at Discharge: Stable, back to baseline state. Condition at Discharge: Stable back to baseline state. Medications at Discharge: Ambulatory Orders Medication Instructions Recorded Atorvastatin Calcium [Lipitor] 10 mg PO DAILY 12/26/18 Paroxetine HCl 20 mg PO DAILY 12/26/18 Losartan Potassium [Cozaar] 50 mg PO DAILY 30 Days #30 tablet 12/27/18 Lab/Diagnostics: Laboratory Last Values WBC 10.25 K/ul (4.2-10.2) H 12/27/18 06:21 RBC 4.76 10^6/ul (4.70-6.10) 12/27/18 06:21 Hgb 14.1 g/dl (14.0-18.0) 12/27/18 06:21 Hct 43.2 % (42.0-52.0) 12/27/18 06:21 MCV 90.8 fl (80.0-94.0) 12/27/18 06:21 MCH 29.6 pg (27.0-31.0) 12/27/18 06:21 MCHC 32.6 (31.8-35.4) 12/27/18 06:21 RDW Coeff of [place] 12.6 % (11.6-14.8) 12/27/18 06:21 Plt Count 214 10^3/uL (140-440) 12/27/18 06:21 Immature Gran % (Auto) 0.1 % (0.0-5.0) 12/27/18 06:21 Neut % (Auto) 45.5 12/27/18 06:21 Lymph % (Auto) 46.1 (10.0-50.0) 12/27/18 06:21 [place] % (Auto) 6.1 (0-10) 12/27/18 06:21 Eos % (Auto) 1.9 % (0.0-7.0) 12/27/18 06:21 Baso % (Auto) 0.3 % (0.0-3.0) 12/27/18 06:21 Immature Gran # (Auto) 0.0 (0.0-1.0) 12/27/18 06:21 Neut # (Auto) 4.7 K/ul (2.0-6.9) 12/27/18 06:21 Lymph # (Auto) 4.7 K/uL (0.60-3.4) H 12/27/18 06:21 [place] # (Auto) 0.6 K/uL (0.4-2.0) 12/27/18 06:21 Eos # (Auto) 0.2 K/ul (0.0-0.7) 12/27/18 06:21 Baso # (Auto) 0.0 K/uL (0-0.2) 12/27/18 06:21 Sodium 140.5 mmol/L (134.5-145) 12/27/18 06:21 Potassium 4.18 mmol/L (3.5-5.1) 12/27/18 06:21 Chloride 103.9 mmol/L (98-107) 12/27/18 06:21 Carbon Dioxide 27.4 mmol/L (22-30.0) 12/27/18 06:21 Anion Gap 13.38 12/27/18 06:21 BUN 14.9 mg/dL (9-20) 12/27/18 06:21 Creatinine 0.79 mg/dL (0.60-1.10) 12/27/18 06:21 Estimated GFR (MDRD) 124.00 mL/min 12/27/18 06:21 BUN/Creatinine Ratio 18.86 12/27/18 06:21 Glucose 92.3 mg/dL (74-106) 12/27/18 06:21 Calcium 9.01 mg/dL (8.4-10.2) 12/27/18 06:21 Total Bilirubin 0.45 mg/dL (0.2-1.3) 12/27/18 06:21 AST 42.9 U/L (17-59) 12/27/18 06:21 ALT 51.3 U/L (0-50) H 12/27/18 06:21 Alkaline Phosphatase 64.7 U/L (38-126) 12/27/18 06:21 Total Creatine Kinase 56.6 U/L (55-170) 12/27/18 06:21 Troponin I < 0.012 ng/ml (0.0000-0.120) 12/27/18 06:21 Total Protein 6.82 g/dL (6.3-8.2) 12/27/18 06:21 Albumin 4.14 g/dL (3.5-5.0) 12/27/18 06:21 Globulin 2.68 12/27/18 06:21 Albumin/Globulin Ratio 1.54 12/27/18 06:21 Triglycerides 167.7 mg/dL (0-150) H 12/27/18 06:21 Cholesterol 168.8 mg/dL (0-200) 12/27/18 06:21 LDL Cholesterol, Calc 104 mmol/L 12/27/18 06:21 VLDL Cholesterol 34 mg/dL (2-30) H 12/27/18 06:21 HDL Cholesterol 31.7 mg/dL (35-60) L 12/27/18 06:21 Cholesterol/HDL Ratio 5.3 (4.5-6.4) 12/27/18 06:21 TSH 2.640 uIU/L (0.465-4.68) 12/27/18 06:21 Free T4 1.24 ng/dL (0.78-2.19) 12/27/18 06:21 Urine Opiates Screen Negative (NEGATIVE) 12/26/18 14:35 Ur Oxycodone Screen Negative (NEGATIVE) 12/26/18 14:35 Urine Methadone Screen Negative (NEGATIVE) 12/26/18 14:35 Ur Propoxyphene Screen Negative (NEGATIVE) 12/26/18 14:35 Ur Barbiturates Screen Negative (NEGATIVE) 12/26/18 14:35 U Tricyclic Antidepress Negative (NEGATIVE) 12/26/18 14:35 Ur Phencyclidine Scrn Negative (NEGATIVE) 12/26/18 14:35 Ur Amphetamine Screen Negative (NEGATIVE) 12/26/18 14:35 U Methamphetamines Scrn Negative (NEGATIVE) 12/26/18 14:35 U Benzodiazepines Scrn Negative (NEGATIVE) 12/26/18 14:35 Urine Cocaine Screen Negative (NEGATIVE) 12/26/18 14:35 U Cannabinoids Screen Positive (NEGATIVE) 12/26/18 14:35 Influ A Molecular Assay Negative by naat (NEGATIVE) 12/26/18 14:35 Influ B Molecular Assay Negative by naat (NEGATIVE) 12/26/18 14:35 CPK/Troponin I Trends 12/26/18 12/26/18 12/27/18 Range/Units 14:28 22:40 06:21 Total Creatine Kinase 65.9 56.1 56.6 (55-170) U/L Troponin I < 0.012 < 0.012 < 0.012 (0.0000-0.120) ng/ml WBC Trends 12/26/18 12/27/18 Range/Units 14:28 06:21 WBC 10.55 H 10.25 H (4.2-10.2) K/ul CXR: 12/26/18: Negative. Echo/Stress Echo:LVH, normal EF, no e/o ischemia. Suspect non cardiac chest pain. D/W cardiology personally. Education Provided to Patient and Family: 1. F/U with PCP in 1 week 2. CBC in 1 week for leukocytosis 3. Monitor BP, Goal <140/90 4. Encourage f/u with ENT regarding voice 5. Losartan 50mg replaced lisinopril 10mg. R/B/A to new medication d/w patient. Clearing throat and cough and chest pain, deep voice on lisinopril, we will trial change to ARB to see if this makes a difference. 6. Portion control, regular exercise would encourage 150min/week as able. Lose it/myfitness pal. 7. Smoking Cessation education 8. THC cessation education Follow-ups: 1. Dr. Mitchell OV 1 week 2. Would encourage outpatient ENT referral 3. CBC in 1 week 4. Monitor BP. Goal <140/90 5. New prescription for Losartan to replace lisinopril 6. Return to ER or PCP if chest pain persists/returns. 7. WEight loss recommended, goal 150 min per week of exercise 8. Smoking cessation encouraged 9. Marijuana cessation encouraged Disposition: HOME SELF-CARE Hospital Course: 23 yo WM patient of Dr. Mitchell, arrived in ER 14:[address] Vanegas. The patient reported flu like symptoms and chest pain, worse with cough. Temp was afebrile, Pulse 110, RR 20, BP 180/100, pulse ox 98%. He did not meet SIRS criteria (WBC <12). Reported intermittent chest pain to ER provider, mild to moderate sx non productive cough, dry, URI symptoms, nasal congestion, cough. No rapid breathing no dypnea, no fever, no chills, no pleuritic chest pain, no wheezing, no hemoptysis, calf pain/swelling/edema, sore throat, weight loss, decreased oral intake, increased thirst, increased appetite. No other major issues, ddx in ER was pneumonia vs bronchitis. Based on heckerling rule to this point patient had a 4% OP and 11% ER risk of pneumonia assuming prevalence of 5 % outpatient and up to 15% ER pretest probabilty and CXR likely would be of benefit. ROS reported chest pain , reported no respiratory symptoms according to the ROS. History of bipolar, schizophrenia and tourettes. ER examination well-appearing, no distress, well-nourished, normal reported HEENT, normal respiratory. Normal CV, normal GI/. normal MSK/SKIN/Neuro/psych. EKG reported to me by Dr. Vanegas as NSR. patient monitor normal. Labs in ER CBC showed WBC 10.55, Hgb 15.6, plt 240. CMP with sodium 140.7, K+ 4.38, Cl 100.8, BUN 13.cl 0.88 and glucose 96.3. CBC differential showed a mild elevation of lymphocytes consistent with viral process. CMP mild elevation of ALT at 58.2 and troponin <0.012. CK normal 65.9. UDS + for THC. Flu A/B negative. CXR was negative, reviewed this via PACS personally and no e/o pneumonia. Patient was seen in ER 2. Patient has prominent deep voice. He notes feelign like pressure along his manubrium. He feels intermittent beats/abnormal beats. He has history of HTN, takes medications for this regularly. The patient normally follows with Dr. Mitchell. The patient has no pain with swallowing. No sore throat. No rhinorrhea. He has mild cough. I asked him about his voice and he notes it is very deep. He has no globus sensation. He has mid sternal chest pain, this comes and goes. He noted pain with palpation of the chest along the sternum. He does not like the way he is feeling and came to ER. He missed his BP meds today and presented with marked elevation of 180/100. No WITT, no vision changes, no Nausea, no vomiting, no diarrhea, no abdominal, no acid reflux. Overall he feels okay other than chest pain. He has mild SOA with activity. He has no sick contacts. He smokes about 3 cig per day. He has 3 dogs outdoors. He currently lives with grandfather. He has no children. He is not working currently. 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 No exposures to chemicals. Last use marijuana today. He goes through 1-2 joints per day of THC. He does this infrequently. Again denied any reflux symptoms. No c/o swallowing problems, his voice is very deep and sounds hot potato. He has ever seen specialist regarding voice. He did not seep well through night, I was called around 9:30 asking about meds for sleep. I offered trazodone 50mg and to call if this did not work. The patient noted this am it did not help at all. He feels fine this am, no chest pain, no N/V/D, no URI, he actually feels the throat clearing is better and wants stress test so that he can go home. Labs this am were stable/essentially unchanged. Lipid panel showed minimal hypertriglyceridemia 167.7, low HDL 31.7 and LDL of 104. WBC 10.25, hgb stable 14.1, plt stable 214. CMP unremarkable except minimal elevation of ALT 51.3 improved from 58.2 yesterday. He did receive 1 dose of lovenox. We have changed his home lisinopril to losartan and we will have him f/u with PCP about this change to see if it helps with throat clearing. He has voided x 2, ate 100% of dinner. Now NPO for echo/stress test today as per Dr. Xie. BP through night has been reasonable and no additional needed interventions. He had sinus arrhythmia on tele with some sinus tachycardia. HR 83-110 through night but in high 60's now. I evaluated patient this am and he was sitting on bedside looking at his J-loop. He was preoccupied with this small bubble around the leur lock and nursing was contacted by me to evaluate this further. TSH was normal at 2.64, free T4 was normal at 1.24. No other imaging was completed. NO BM in hospital. He has no c/o now as per negative ROS listed below. Troponin and CKMB negative x 3. No chest pain, asymptomatic now. Ruled out ACS based on negative trop x 3 Stress test negative, Echocardiogram negative. Patient was d/c from hospital with losartan, replacing the lisinopril. He will continue lipitor and SSRI. Left hospital symptom free, reaching maximally optimized state for the hospitalization. F/U with PCP this week. Day of D/C physical examination: Vital Signs - 24 hr 12/26/18 12/26/18 12/26/18 17:40 18:37 22:00 Temperature 98.6 F 98.1 F 98 F Pulse Rate 94 H 110 H 79 Respiratory 16 20 14 Rate Blood Pressure 180/100 H 155/79 H O2 Sat by Pulse 98 98 98 Oximetry 12/27/18 05:40 Temperature 97.8 F Pulse Rate 81 Respiratory 20 Rate Blood Pressure 148/88 H O2 Sat by Pulse 99 Oximetry Constitutional: Appearance-No acute distress, Consistent with stated age. Sitting at bedside. Grandfather walked in at end of conversation. History discussed a second time. Orientation- Oriented x 3, alertGait-Normal pace, normal arm movement. Build and Nutrition-[obese male BMI 41.7. ] General- Patient is pleasant and cooperative with the interview and exam. Integumentary: General-No rashes, ulcers or lesions. Palpation- Normal skin moisture/turgor. Skin is warm to touch, appropriate. Capillary refill is normal bilateral Upper and lower extremity. Head/Neck: Head- normocephalic and atraumatic. Neck- without visible/palpable lumps or pulsations. Palpation- No bony tenderness about head/neck along frontal, occipital, temporal, parietal, mastoid, jawline, zygoma, orbit or any other location. NO temporal artery tenderness. No TMJ tenderness. Neck Supple. Thyroid-No thyromegaly, no nodules ENMT: Nose and sinus- No sinus tenderness along frontal/maxillary region. External appearance normal and midline. Nares- bilateral quiet airflow, no discharge. Nasal mucosa- No bleeding noted and no ulcerations observed. [place], moist. Turbinates non boggy. Lips- normal color, moist without cracks/lesions Oral Cavity/Palate- hard/soft palate intact without lesions, oral mucosa pink and moist. Oropharynx- no pharyngeal erythema, Uvula midline. No post nasal drip. No exudate. Salivary glands- Non tender to palpation No pharynx abnormality. He has no tonsillar abnormality. Clearing throat is better on exam. He still has notable deep voice that sounds full. CHEST/LUNG: Auscultation- Breath sounds normal throughout all lung sommers. Normal tracheal sounds, Normal bronchial sounds overlying sternum, Bronchovessicular sounds normal between scapulae posteriorly, Normal vessicular breath sounds heard throughout periphery. Lungs are clear today. Adventitious sounds- No wheezes, rales, rhonchi. CARDIOVASCULAR: Auscultation- Regular rate and rhythm with some sinus arrhythmia not today. No murmur noted in sitting, supine positions. Extremities - no digital clubbing, cyanosis, edema, increased warmth. ABDOMEN: Inspection- normal and no visible pulsations. Normal contour. Auscultation- Bowel sounds normal, no abdominal bruits. Palpation/Percussion- soft, non-tender, no rebound tenderness, no rigidity (guarding), no jar tenderness, no masses. Peripheral Vascular: Normal temperature with pink nailbeds and no ulcerations. pulses 2+ bilaterally radial and DP. Normal capillary refill. Edema- No edema. Musculoskeletal: Generalized-No generalized swelling or edema of extremities, no digital clubbing or cyanosis, neurovascularly intact all four extremities. Neurological: General- Moves all 4 extremities symmetrically. Symmetrical face and body posture. Cranial nerves- individually evaluated II-XII and intact. PERRLA, Normal EOMI, visual/special senses appear intact, Face is symmetrical and normal sensation/movement, normal tongue, normal strength/posture of neck musculature. Neuropsych: Oriented- Person, place, time. (AAOx3), Mood/affect- Flat. Able to articulate Speech-Normal speech, but very deep sounding voice. Chronic per patient. normal rate, normal tone, normal use of language, volume and coherence. Thought content- normal with ability to perform basic computations and apply abstract thought/reason. Associations- intact, no SI/HI, no hallucinations, delusions, obsessions. Judgment/insight- Appropriate. Memory- Recall intact, remote and recent memory intact. Knowledge- Age appropriate fund of knowledge, concentration and attention span normal. Lymphatic: Head/Neck- normal size and non tender to palpation. Plan: 1. D/C Home 2. Dr. Mitchell this week for f/u 3. CBC in 1 week 4. Would see ENT as outpatient regarding voice 5. Needs to focus on weight loss 6. BP control important, f/u wiht PCP this week 7. No Tobacco. 8. No marijuana. 9. Activity ad carin 10. Diet regular Discharge today >30 minutes with evaluation in am, discussion with cardiology. D/C home as he has reached maximal potential for this hospitalization.
[2018-12-27] MEDS ORDERED: PNEUMOVAX 23 ONE (12:51)
[2018-12-27] MEDS ORDERED: LOVENOX SUBCUT SCH (21:00)
--- NOTE | 2018-12-29 09:09 | ECHO2D ---
Date of Exam: 12/27/18 Ordering Physician: DR. RONI SHELBY--HOSPITALIST Room #: 119 Reason for Echo: CHEST PAIN, SHORT OF AIR M-Mode Normal Adult Results LV Dimensions Normal Adult Results AoV Opening excursions >1.6 >1.6 LVEDD-base- 3.5-5.8 5.0 Ao root dimensions 2.0-3.7 3.2 LVESD-base- 3.1-4.6 L. Atrium dimensions 1.9-3.8 4.1 Post. Wall thickness 0.8-1.1 1.1 IV septum (thickness) 0.7-1.2 1.2 Post. Wall excursion 0.72-1.3 NORMAL Septal motion NORMAL Systolic motion R. Ventricular cavity 1.5-2.0 NORMAL LVEF 60% 64% Paradoxical septal wall motion NORMAL 2-D : ENLARGED LEFT ATRIAL CAVITY--NORMAL LEFT VENTRICULAR CONTRACTILITY-- NORMAL VALVES--NO EFFUSION, NO THROMBUS, NORMAL LEFT VENTRICLE SIZE M-MODE: MV: NORMAL AV: NORMAL TV: NORMAL PV: CHAMBER SIZE: ENLARGED LEFT ATRIAL CAVITY WALL MOTION: NORMAL PERICARDIUM: NORMAL INTERPRETATION: 1. LEFT VENTRICULAR HYPERTROPHY BORDERLINE 2. MILDLY ENLARGED LEFT ATRIAL CAVITY 3. NORMAL VALVES 4. NORMAL LEFT VENTRICULAR CONTRACTILITY MTDD
--- NOTE | 2018-12-29 09:15 | ECHOSTRESS ---
Date of Exam: 12/27/18 Ordering Physician: DR. RONI SHELBY--HOSPITALIST Reason for Echo: CHEST PAIN, SOA, STRESS ECHO--NO ISCHEMIA M-Mode Normal Adult Results LV Dimensions Normal Adult Results AoV Opening excursions >1.6 LVEDD-base- 3.5-5.8 Ao root dimensions 2.0-3.7 LVESD-base- 3.1-4.6 L. Atrium dimensions 1.9-3.8 Post. Wall thickness 0.8-1.1 IV septum (thickness) 0.7-1.2 Post. Wall excursion 0.72-1.3 Septal motion Systolic motion R. Ventricular cavity 1.5-2.0 LVEF 60% Paradoxical septal wall motion 2-D: NORMAL LEFT VENTRICULAR CONTRACTILITY--RESTING AND POST EXERCISE M-MODE: MV: AV: TV: PV: CHAMBER SIZE: WALL MOTION: NORMAL LEFT VENTRICULAR CONTRACTILITY--RESTING AND POST EXERCISE PERICARDIUM: INTERPRETATION: 1. NORMAL LEFT VENTRICULAR CONTRACTILITY--RESTING AND POST EXERCISE MTDD
--- NOTE | 2018-12-29 09:26 | STRESSECHO ---
Date of Test: 12/27/18 Ordering Physician: DR. RONI SHELBY--HOSPITALIST Occupation: Reason for Exam: CHEST PAIN, SOA Smoking History: CURRENT EVERYDAY SMOKER Height: 75" Weight: 334 LBS Current Medications: LIPITOR, PAROXETINE, COZAAR Resting EKG: SINUS RHYTHM/ NO ACUTE CHANGES Target Heart Rate: 169/199 MAX S-T SEGMENT STAGE MPH/GRADE HEART RATE BPM BLOOD PRESSURE MMHG RHYTHM +/- ELEVATION DEPRESSION SYMPTOMS AT REST 75 BPM 148/86 MMHG SR X NONE 1 1.7/10% 155 BPM 164/90 MMHG SR X NONE 2 2.5/12% 3 3.4/14% 4 4.2/16% 5 5.0/18% Immediately After 170 BPM SR X SHORT OF AIR Minutes Post Exercise 5:00 80 BPM SR X NONE Minutes Post Exercise DURATION OF EXERCISE: 4:06 MAXIMUM HEART RATE REACHED: 170 BPM REASON FOR TERMINATION: SHORT OF AIR 94% OXYGEN SATURATION WITH EXERCISE ON ROOM AIR INTERPRETATION: 1. NO EVIDENCE OF ISCHEMIA BY ST-T WAVE CHANGES 2. NO CHEST PAIN OR DISCOMFORT 3. BLOOD PRESSURE RESPONSE: BORDERLINE HYPERTENSION AT REST AND EXERCISE 4. NO ARRHYTHMIAS NORMAL LEFT VENTRICULAR CONTRACTILITY--RESTING AND POST EXERCISE MTDD
--- NOTE | 2018-12-29 13:52 | CONS ---
DATE OF CONSULTATION: 12/27/18 REASON FOR CONSULTATION: Chest pain HISTORY OF PRESENT ILLNESS: 23 year old white male was brought to the emergency room on 12/26/18 with cough , congestion and bronchitis type of symptoms. The patient also has chest pain center of the chest localized more or less and no radiation for the past few days there is no associated symptoms of shortness of breath or sweating with it , it's nonexertional. REVIEW OF SYSTEMS: CONSTITUTIONAL: No night sweats. No fatigue, malaise, lethargy. No fever or chills. HEENT: Eyes: No visual changes. No eye pain. No eye discharge. ENT: No sinus drainage. No epistaxis. No sinus pain. No sore throat. No odynophagia. No ear pain. No congestion. RESPIRATORY: Cough, Congestion. No hemoptysis. No shortness of breath. CARDIOVASCULAR: No angina symptoms. No CHF symptoms. Chest pain is center of the chest more or less localized, comes and goes, sharp at times, dull ache. No associated shortness of breath. No palpitations. No orthopnea. GASTROINTESTINAL: No abdominal pain. No nausea or vomiting. No diarrhea or constipation. No hematemesis. No hematochezia. GENITOURINARY: No urgency. No frequency. No dysuria. No hematuria. No obstructive symptoms. No discharge. No pain. No significant abnormal bleeding. MUSCULOSKELETAL: No musculoskeletal pain. No joint swelling. NEUROLOGICAL: No headache. No neck pain. No syncope. No seizures. No dizziness. PSYCHIATRIC: Not anxious. No depression. No suicidal thoughts. No homicidal thoughts. SKIN: No rash. No lesions. No wounds. ENDOCRINE: No unexplained weight loss. No weight gain. HEMATOLOGIC/LYMPHATIC: No anemia. No purpura. No petechiae. No prolonged or excessive bleeding. No palpable lymph nodes. MEDICATIONS: Atorvastatin Losartan Paroxetine ALLERGIES: None SOCIAL/PERSONAL/FAMILY HISTORY: The patient is a smoker and denies of drug abuse. Not . Lives with the grandfather. PHYSICAL EXAMINATION: GENERAL: The patient is oriented to time, place and person. VITAL SIGNS: Temperature 97.8, pulse 80, respiratory rate 20,blood pressure 148/ 88, pulse ox 99% HEENT: Head normocephalic, atraumatic. Eyes: Extraocular muscles are intact. Pupils are equal, round and reactive to light and accommodation. Ears: No lesions. Nose appeared normal. Throat: No exudate or erythema. NECK: Supple. No JVP, no carotid bruit. No lymphadenopathy or thyromegaly. LUNGS: Decreased breath sounds but clear to auscultation. Percussion note normal. Chest symmetrical. HEART: S1, S2, no S3. No murmurs. No cyanosis or clubbing. No ascites. Pulses: Dorsalis pedis and posterior tibial pulses +2 bilaterally. PMI not palpable on auscultation. No pericardial rub. ABDOMEN: Soft. Nontender. Bowel sounds active. No CVA tenderness. No mass felt. EXTREMITIES: No edema. Full range of motion of all extremities, equal. NEUROLOGIC: No focal deficit. Cranial nerves II through XII are grossly intact. No headache, no double vision or headache. SKIN: Not dry. Intact. Turgor - normal. LYMPHATIC: No palpable lymph nodes/no lymphedema. MUSCULOSKELETAL: Normal joints with no swelling. Muscle tone is normal. LABS: Cardiac markers are negative. EKG sinus rhythm with no acute changes. T4 TSH negative. Hgb 14, hct 43, WBC 10,000 normal differential, creatinine 0.7, BUN 14 , potassium 4, lipids pending. The patient had echocardiogram done which showed LVH borderline with borderline LA cavity enlargement, valve structures and LV contractility normal. Stress echo pending. ASSESSMENT: 1. Chest pain, seems to be noncardiac by history. Maybe associated with bronchitis 2. Morbid obesity with BMI 41 3. History of dyslipidemia on Lipitor 4. History of hypertension on Losartan 5. Sedentary lifestyle. RECOMMENDATIONS: 1. The patient was educated about CAD and risk factors and how to modify them 2. Diet for weight loss and DASH discussed 3. Recommended Bariatric referral which he declined. 4. NON HDL goal should be 100 because he is a 23 year old with dyslipidemia 5. Discussed with the patient and he is fairly intelligent enough to understand this. 6. Counseling for smoking done Thanks for referral. BING
== END 2018-12-27 13:03 | disposition home or self-care (01) ==
LOC: ED 14:06 → UNDOADMIN 16:33 → MEDSURG B 16:33 → INTOOBSV 16:34 → MEDSURG B 16:34
PROVIDERS: ADMIT Family Medicine; ATTEND Family Medicine
DX: R07.9 Chest pain, unspecified (principal); Z68.41 Body mass index [BMI] 40.0-44.9, adult; R05 Cough; J06.9 Acute upper respiratory infection, unspecified; R09.81 Nasal congestion; I10 Essential (primary) hypertension; R49.9 Unspecified voice and resonance disorder; R19.8 Other specified symptoms and signs involving the digestive system and abdomen; R74.0 Nonspecific elevation of levels of transaminase and lactic acid dehydrogenase [LDH]; E78.5 Hyperlipidemia, unspecified; D72.829 Elevated white blood cell count, unspecified
CPT/HCPCS: 36415; 80053; 80061; 80306; 82550; 84439; 84443; 84484; 85025; 87502; 87651; 90686; 93005; 93010; 96360; 96361; 96372; 99217; 99220; 99284

== ENCOUNTER 2019-03-01 11:31 | Emergency (ER) ==
[2019-03-01] MEDS ORDERED: SODIUM CHLORIDE 1,000 ML IV STA (11:33)
[2019-03-01] MEDS ORDERED: ADENOCARD IVP STA ×2 (11:34→12:01)
[2019-03-01 11:48] VITALS: BP 147/100; TEMP 97.8; BMI 46.6
--- NOTE | 2019-03-01 13:01 | CT ---
EXAM: CT scan brain without contrast HISTORY: Headache COMPARISON: None. FINDINGS: Contiguous axial images obtained from skull base to the convexities without contrast utili zing 5-mm collimation. Sagittal and coronal reconstructions were imaged and reviewed.. The ventricl es and CSF spaces are within normal limits. There are no acute intracranial findings the visualized paranasal sinuses and mastoid air cells are clear. The calvarium is intact IMPRESSION: No acute intracranial findings
[2019-03-01] MEDS ORDERED: LOPRESSOR IVP STA (13:10)
--- NOTE | 2019-03-01 13:24 | ED.PDOC ---
General ED Provider: Dr. HELLEN ATKINS-ER Chief Complaint: Chest Pain Stated Complaint: my heart is racing--this has happened before Time Seen by Physician: 11:50 Mode of Arrival: Walk-In Information Source: Patient Exam Limitations: No limitations Primary Care Provider: KALEE ZAMARRIPA Nursing and Triage Documentation Reviewed and Agree: Yes Does patient meet sepsis criteria?: No System Inflammatory Response Syndrome: Not Applicable Sepsis Protocol: For patient's 13 years and over: Temp is 96.8 and below OR 101 and greater Pulse >90 BPM Resp >20/minute Acutely Altered Mental Status Are patient's symptoms suggestive of a new infection, such as: -Pneumonia -Skin, Soft Tissue -Endocarditis -UTI -Bone, Joint Infection -Implantable Device -Acute Abdominal Infection -Wound Infection -Meningitis -Blood Stream Catheter Infection -Unknown Cardiovascular Complaint Exam - Palpitations Complaint/Exam Onset/Duration: this am Symptoms Are: Still present Timing: Constant Initial Severity: Mild Current Severity: Moderate Character: Reports: Fast, Pounding Aggravating: Reports: None Alleviating: Reports: None Associated Signs and Symptoms: Denies: Lightheadedness, Dizziness, Syncope, Chest pain, Shortness of breath, Diaphoresis, Nausea, Vomiting Related Surgical History: Reports: None Cardiac Risk Factors: Reports: None Pulmonary Embolism Risk Factors: Reports: None Atrial Fibrillation Risk Factors: Reports: Hypertension Thyroid Exam: Normal Quality Indicator For Non-Traumatic Chest Pain/Syncope: EKG Performed Review of Systems - Review Of Systems Constitutional: Reports: No symptoms Eyes: Reports: No symptoms Ears, Nose, Mouth, Throat: Reports: No symptoms Respiratory: Reports: No symptoms Cardiac: Reports: Chest pain, Palpitations GI: Reports: No symptoms : Reports: No symptoms Musculoskeletal: Reports: No symptoms Skin: Reports: No symptoms Neurological: Reports: Headache Endocrine: Reports: No symptoms Hematologic/Lymphatic: Reports: No symptoms All Other Systems: Reviewed and Negative Past Medical History - Past Medical History Previously Healthy: Yes Endocrine: Reports: None Cardiovascular: Reports: None Respiratory: Reports: None Hematological: Reports: None Gastrointestinal: Reports: None Genitourinary: Reports: None Neuro/Psych: Reports: Bipolar Disorder, Schizophrenia, Other (ADHD, TOURETTES) Musculoskeletal: Reports: None Cancer: Reports: None Other Pertinent Past Medical History: Obesity - Surgical History General Surgical History: Reports: None - Family History Family History: Reports: None - Social History Smoking Status: Never smoker Hx Substance Use: No Alcohol Screening: Heavy - Immunizations Tetanus Shot up to Date: Yes Physical Exam - Physical Exam Appearance: Well-appearing Eyes: WILFREDO, EOMI, Conjunctiva clear ENT: Ears normal Neck: Supple Respiratory: Airway patent Cardiovascular: Irregular rhythm, Tachycardia GI/: Soft, Nontender, No masses, Bowel sounds normal, No Organomegaly Musculoskeletal: Normal strength Skin: Warm, Dry, Normal color Neurological: Sensation intact Psychiatric: Affect appropriate, Mood appropriate, Anxious Interpretation - Radiology Interpretation Radiology Interpretation By: Radiologist Radiology Results: Negative Exam Interpreted: CT Scan - EKG Interpretation Time of EKG #1: 13:24 Rate: Tachy Ectopy: None [place]: NL ST Segment: Normal Interpretation: svt Re-Evaluation - Re-Evaluation Time of Re-Evaluation: 13:25 Status: Improved Vital Signs Stable: Yes Pain Level: 0 Appearance: NAD Lungs: Clear Skin: Warm and Dry Neuro: Alert and Oriented X3 CV: RRR Critical Care Note - Critical Care Note Total Time (mins): 0 Course - Course Hematology/Chemistry: 03/01/19 11:43 03/01/19 11:43 Orders, Labs, Meds: Lab Review 03/01/19 03/01/19 03/01/19 11:43 11:43 11:43 WBC 10.28 H RBC 4.99 Hgb 15.5 Hct 47.2 MCV 94.6 H MCH 31.1 H MCHC 32.8 RDW Coeff of [place] 13.9 Plt Count 226 Immature Gran % (Auto) 0.4 Neut % (Auto) 48.3 Lymph % (Auto) 42.2 [place] % (Auto) 6.6 Eos % (Auto) 2.0 Baso % (Auto) 0.5 Immature Gran # (Auto) 0.0 Neut # (Auto) 5.0 Lymph # (Auto) 4.3 H [place] # (Auto) 0.7 Eos # (Auto) 0.2 Baso # (Auto) 0.1 Sodium 139.7 Potassium 4.15 Chloride 100.5 Carbon Dioxide 29.1 Anion Gap 14.25 BUN 15.4 Creatinine 0.80 Estimated GFR (MDRD) 122.00 BUN/Creatinine Ratio 19.25 Glucose 90.1 Calcium 8.64 Total Bilirubin 0.46 AST 38.6 ALT 36.2 Alkaline Phosphatase 87.7 Total Creatine Kinase 70.6 Troponin I < 0.012 Total Protein 7.44 Albumin 4.89 Globulin 2.55 Albumin/Globulin Ratio 1.91 TSH 2.070 Free T4 1.13 Urine Color Urine Clarity Urine pH Ur Specific [place] Urine Protein Urine Glucose (UA) Urine Ketones Urine Blood Urine Nitrite Urine Bilirubin Urine Urobilinogen Ur Leukocyte Esterase Urine Opiates Screen Ur Oxycodone Screen Urine Methadone Screen Ur Propoxyphene Screen Ur Barbiturates Screen U Tricyclic Antidepress Ur Phencyclidine Scrn Ur Amphetamine Screen U Methamphetamines Scrn U Benzodiazepines Scrn Urine Cocaine Screen U Cannabinoids Screen 03/01/19 03/01/19 13:00 13:00 WBC RBC Hgb Hct MCV MCH MCHC RDW Coeff of [place] Plt Count Immature Gran % (Auto) Neut % (Auto) Lymph % (Auto) [place] % (Auto) Eos % (Auto) Baso % (Auto) Immature Gran # (Auto) Neut # (Auto) Lymph # (Auto) [place] # (Auto) Eos # (Auto) Baso # (Auto) Sodium Potassium Chloride Carbon Dioxide Anion Gap BUN Creatinine Estimated GFR (MDRD) BUN/Creatinine Ratio Glucose Calcium Total Bilirubin AST ALT Alkaline Phosphatase Total Creatine Kinase Troponin I Total Protein Albumin Globulin Albumin/Globulin Ratio TSH Free T4 Urine Color Yellow Urine Clarity Clear Urine pH 7.0 Ur Specific [place] 1.020 Urine Protein Negative Urine Glucose (UA) Negative Urine Ketones Negative Urine Blood Negative Urine Nitrite Negative Urine Bilirubin Negative Urine Urobilinogen 0.2 Ur Leukocyte Esterase Negative Urine Opiates Screen Negative Ur Oxycodone Screen Negative Urine Methadone Screen Negative Ur Propoxyphene Screen Negative Ur Barbiturates Screen Negative U Tricyclic Antidepress Negative Ur Phencyclidine Scrn Negative Ur Amphetamine Screen Negative U Methamphetamines Scrn Negative U Benzodiazepines Scrn Negative Urine Cocaine Screen Negative U Cannabinoids Screen Positive Orders Category Date Time Status EKG-(ED ONLY) Stat CARDIO 03/01/19 11:32 Completed EKG-(ED ONLY) Stat CARDIO 03/01/19 12:19 Completed ED [employer] SPECIALIST APPLIED .ONCE EMERGENCY 03/01/19 11:32 Active ED IV/MEDIPORT/POWERPORT .ONCE EMERGENCY 03/01/19 11:32 Active CBC W/ AUTO DIFF Stat LAB 03/01/19 11:43 Completed COMPREHENSIVE METABOLIC PANEL Stat LAB 03/01/19 11:43 Completed CREATINE KINASE Stat LAB 03/01/19 11:43 Completed FREE T4 (FREE THYROXINE) Stat LAB 03/01/19 11:43 Completed THYROID STIMULATING HORMONE Stat LAB 03/01/19 11:43 Completed TROPONIN I Stat LAB 03/01/19 11:43 Completed UA [URINALYSIS C & S IF INDICATED] Stat LAB 03/01/19 13:00 Completed URINE DRUG SCREEN (RAPID FOR ED) [DRUG SCREEN, URINE, LAB 03/01/19 13:00 Completed RAPID] Stat 0.9 % Sodium Chloride [Saline Flush] MEDS 03/01/19 11:32 Ordered 1 syr IVF PRN PRN Adenosine [Adenocard] MEDS 03/01/19 12:01 Discontinued 12 mg IVP ONCE STA Adenosine [Adenocard] MEDS 03/01/19 11:34 Discontinued 6 mg IVP ONCE STA Metoprolol Tartrate [Lopressor] MEDS 03/01/19 13:10 Discontinued 10 mg IVP ONCE STA Sodium Chloride 0.9% [Sodium Chloride] 1,000 ml MEDS 03/01/19 11:[address] HEAD W/O CONTRAST Stat RADS 03/01/19 12:18 Completed Medications Generic Name Dose Route Start Last Admin Trade Name Freq PRN Reason Stop Dose Admin Sodium Chloride 1 syr 03/01/19 11:32 Saline Flush IVF PRN PRN To flush IV Discontinued Medications Generic Name Dose Route Start Last Admin Trade Name Freq PRN Reason Stop Dose Admin Adenosine 6 mg 03/01/19 11:34 03/01/19 11:57 Adenocard IVP 03/01/19 11:35 12 mg ONCE STA Administration Adenosine 12 mg 03/01/19 12:01 03/01/19 12:02 Adenocard IVP 03/01/19 12:02 12 mg ONCE STA Administration Sodium Chloride 1,000 mls @ 1,000 mls/hr 03/01/19 11:33 03/01/19 11:56 Sodium Chloride IV 03/01/19 12:32 1,000 mls/hr BOLUS STA Administration Metoprolol Tartrate 10 mg 03/01/19 13:10 03/01/19 13:13 Lopressor IVP 03/01/19 13:11 10 mg ONCE STA Administration Vital Signs: Temp Pulse Resp BP Pulse Ox 03/01/19 11:43 97.8 F 221 H 16 147/100 H 100 WENDY Risk Score WENDY Risk Score: Risk Score Odds of by 30D 0 0.1 (0.1-0.2) 1 0.3 (0.2-0.3) 2 0.4 (0.3-0.5) 3 0.7 (0.6-0.9) 4 1.2 (1.0-1.5) 5 2.2 (1.9-2.6) 6 3.0 (2.5-3.6) 7 4.8 (3.8-6.1) Departure - Departure Time of Disposition: 13:25 Disposition: HOME SELF-CARE Discharge Problem: SVT (supraventricular tachycardia) Instructions: Supraventricular Tachycardia (ED) Condition: Good Pt referred to PMD for follow-up: Yes IPMP verified?: No Additional Instructions: add lopressor 50mg bid to current regimen---i suggest getting referral to dr siddiqui or rosario for consideration of laser ablation---stop etoh consumption Allergies/Adverse Reactions: Allergies No Known Drug Allergies Adverse Reaction (Verified 03/01/19 11:52) Home Medications: Ambulatory Orders Atorvastatin Calcium [Lipitor] 10 mg PO DAILY 12/26/18 Losartan Potassium [Cozaar] 50 mg PO DAILY 30 Days #30 tablet 12/27/18 Disposition Discussed With: Patient, Family
== END 2019-03-01 13:39 | disposition home or self-care (01) ==
LOC: ED 11:31
DX: I47.1 Supraventricular tachycardia (principal); I10 Essential (primary) hypertension
CPT/HCPCS: 36415; 80053; 80306; 81001; 82550; 84439; 84443; 84484; 85025; 93005; 93010; 96374; 96375; 96376; 99284